=== PATIENT | female | born 1975 | race Caucasian/White ===

== ENCOUNTER → 2017-09-24 | Outpatient (CLI) | payer OTHER ==
--- NOTE | 2017-10-10 10:41 | PROC ---
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 PROCEDURE: Nasopharyngolaryngoscopy. FINDINGS: On nasopharyngolaryngoscopy, after giving 2% viscous lidocaine orally and then 2% viscous lidocaine to the left nostril, there were no suspicious visible lesions in the nasopharynx or posterior oropharynx. There were no visible lesions in the hypopharynx. The true vocal cords were normally mobile bilaterally without any visible lesions. Thank you very much for allowing me to participate in the care of this patient. <ELECTRONICALLY SIGNED> By: Gurjit Carrillo MD 10/10/17 1041 [id number] [id number] Carrillo MD /nt
--- NOTE | 2017-10-10 12:31 | CON ---
[address] [address] CONSULTATION Name: ANTELMO SHINE Room: [facility].#: [id number] Admission: 09/24/17 Attend Phys: Gurjit Carrillo MD Discharge: Date of : 73 Report #: [id number] THIS REPORT FOR: //name// CC: Gurjit Estes MD RADIATION ONCOLOGY CONSULT NOTE DATE OF CONSULTATION: 09/24/2017. [facility] REFERRING PHYSICIANS: Include Dr. Bentley Juarez and Dr. Leidy Estes. PRIMARY SITE AND HISTOPATHOLOGY: The patient has findings consistent with a poorly differentiated squamous cell carcinoma that was involving the left superficial parotid tissue as well as the left level 2 and 3 cervical lymph nodes involving about 3/6 lymph nodes with focal extracapsular extension. HISTORY OF PRESENT ILLNESS: The patient is a 42-year-old woman who developed a left neck mass around July 2017. She ultimately was seen by the ear, nose and throat physician, Dr. Corey Kilpatrick, and he ordered a neck CT with contrast on 08/27/2017 which revealed that the left parotid gland was abnormal with the deep lobe replaced by a necrotic mass that measured about 3.6 cm. x 2.2 cm. x 3.3 cm and more laterally within the superficial lobe of the parotid, there was a 1.8 cm. x 1.3 cm. x 1.7 cm partially cystic mass identified. Inferior to the parotid and anterior to the left sternocleidomastoid, there were several mildly enlarged necrotic lymph nodes seen, the largest one measured about 1.7 cm.x 1.7 cm. x 1.2 cm. The patient went on to undergo a left superficial parotidectomy as well as resection of lymph nodes at the level 2 and level 3 portion of the left neck and left tonsillectomy on 09/15/2017. The left tonsillectomy specimen had no malignant specimen seen. The left superficial parotid tissue had carcinoma which was focally extending to the inked margin and then there was 3/6 level 2 and level 3 lymph nodes involved with poorly differentiated squamous cell carcinoma with focal extracapsular extension. The patient was referred for consideration for adjuvant treatment. PAST MEDICAL HISTORY: She has a history of depression, diverticulosis, and ulcers. MEDICATIONS: Effexor, omeprazole, pantoprazole, Zegerid, Zyrtec, and Xanax. PAST SURGICAL HISTORY: She had her colon resected at [facility]. She had a laparoscopy for endometriosis at [facility]. She had dilatation and curettage at [facility] [place] [address] CONSULTATION Name: ANTELMO SHINE Room: [facility]#: [id number] Admission: 09/24/17 Attend Phys: Gurjit Carrillo MD Discharge: Date of : 73 Report #: [id number] ALLERGIES: REGLAN. OBSTETRICS AND GYNECOLOGY: Menarche was at age 12. Last menstrual period was on 09/23/2017 and she is 3, para 2, SAB 1 and her had a vasectomy. FAMILY HISTORY: Paternal grandmother has hypertension. SOCIAL HISTORY: She is a human resource agent. She has 2 sons. Ethanol: she drinks about 1 alcohol containing beverage a day. Cigarettes: she does not smoke cigarettes. REVIEW OF SYSTEMS: GENERAL: She has some sweating and weight loss. She thinks she has lost about 15 pounds since about July 2017. SKIN: She has some birthmarks with moles on her back. LYMPH NODES: She had left neck lymphadenopathy which was resected. ENDOCRINE: She has mild increased thirst after the superficial parotidectomy. HEMATOLOGY/IMMUNOLOGY: She had some issues with anemia in the past. MUSCULOSKELETAL: She has osteoarthritis. HEAD AND NECK: She has post-incisional pain which causes some difficulty with swallowing and voice changes. RESPIRATORY: She denied having any shortness of breath. CARDIOVASCULAR: She denied any palpitations. GASTROINTESTINAL: She denied having nausea or vomiting. NEUROLOGIC: She denied having any focal weakness. PHYSICAL EXAMINATION: VITAL SIGNS: Height 5 feet 10 inches, weight 209.8 pounds, blood pressure 140/88, pulse 91. LYMPH NODES: She had no suspicious palpable masses in the left neck area or right neck area. She has a well-healed surgical incision in the left neck area. GENERAL PSYCHIATRIC: She was alert, oriented, and in no acute distress. EYES: Pupils were equal, round, reactive to light and accommodation. HEAD, EARS, NOSE AND THROAT: Mouth had postsurgical changes in the left tonsillar area. There were no suspicious palpable masses in the mouth. There were no suspicious visible lesions in the mouth and nasopharyngolaryngoscopy after application of a small amount of 2% viscous lidocaine orally and 2% viscous lidocaine to the left nostril, there were no suspicious visible lesions in the nasopharynx or posterior oropharynx. The true vocal cords were normally mobile bilaterally. HEART: Had a regular rate and rhythm without murmur. LUNGS: were clear to auscultation. ABDOMEN: [place] [address] CONSULTATION Name: ANTELMO SHINE Room: [facility]#: [id number] Admission: 09/24/17 Attend Phys: Gurjit Carrillo MD Discharge: Date of : 73 Report #: [id number] tender. Spleen was not palpable. Liver was at the costal margin. EXTREMITIES: Had no clubbing, cyanosis or edema. NEUROLOGIC: Cranial nerves II to XII were intact. Sensation was intact. The patient had 5/5 strength in her extremities. 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 A PET CT scan will be ordered to help determine whether this is consistent with a cutaneous metastases to the parotid gland versus another site as the primary for this cancer. If this is a lymph node metastasis from a cutaneous squamous cell carcinoma, the efficacy for treatment of radiation therapy can be found in the article that was entitled "cutaneous squamous cell carcinoma metastatic to parotid area lymph nodes" that was published in 2008 in the journal Laryngoscope. One of the authors was Dr. Rabago from the [facility] Radiation Oncology Department. In that study, they had about 121 parotid areas in 117 patients that received radiation for nonmelanoma skin cancer that metastasized to the parotid area lymph nodes. The 5-year local regional control rate was 74%. The 5-year overall survival rate was 54%. The patients treated with preoperative radiation therapy seemed to have had a worse prognosis than those that were treated postoperatively. She will be a good candidate for intensity modulated radiation therapy. Baseline lab work will be ordered as well as a PET scan. She will also be sent for a dental evaluation and she will be also sent to the medical oncologist for evaluation for possible concurrent chemotherapy. The risks, benefits, logistics of radiation therapy were explained to the patient in detail. The patient gave her witnessed, informed consent to proceed with radiation therapy. Thank you very much for this consult. <ELECTRONICALLY SIGNED> By: Gurjit Carrillo MD 10/10/17 1231 1750 [id number] Carrillo MD /nt
== END ==
LOC: M.RTH 01:39
DX: C96.9 Malignant neoplasm of lymphoid, hematopoietic and related tissue, unspecified (principal)

== ENCOUNTER → 2017-12-22 | Outpatient (CLI) | payer OTHER ==
--- NOTE | 2018-01-02 16:57 | ONC ---
[facility] [address] [place] [address] RADIATION ONCOLOGY NOTE Name: ANTELMO SHINE Room: [facility].#: [id number] Admission: 12/22/17 Attend Phys: Gurjit Carrillo MD Discharge: Date of : 73 Report #: [id number] THIS REPORT FOR: //name// CC: Gurjit Cano DATE OF SERVICE: 12/22/2017 REFERRING PHYSICIANS: Kat Washburn M.D. as well as Dr. Cano and also Bentley Juarez M.D. 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 She received postoperative radiation therapy. She also received chemotherapy with cisplatin under the care of her medical oncologist, Dr. Washburn. Her radiation therapy was completed on 12/02/2017. INTERVAL NOTE: The patient still has issues with trying to keep her weight stable. She is starting to get some of her taste back. She is able to taste sweet peaches, but her taste is still altered, which affects her ability to keep her weight stable with her p.o. intake. She has a gastric tube in place, and she takes about 2 Isosource per day through her gastric tube. The thick saliva over the weekend caused her to become nauseous and have some vomiting this morning, which then subsided. She is trying to take Jell-O, pudding, milk, and baby food by mouth. MEDICATIONS: Alprazolam, ranitidine, Effexor, Phenergan, [place], (she rarelt takes any [place] at this time), and a 25mcg/hr fentanyl patch. REVIEW OF SYSTEMS: GASTROINTESTINAL: She still has intermittent nausea because of thick saliva. She takes alprazolam as needed for that issue. RESPIRATORY: Breathing, she was not short of breath. PHYSICAL EXAMINATION: VITAL SIGNS: The patient weighed 170.2 pounds on 12/22/2017, she was 178 pounds on 12/10/2017. On 12/22/2017, blood pressure was 136/106, pulse 116, respirations 22, oxygen saturation 94%. LYMPH NODES: She had no palpable cervical or supraclavicular lymphadenopathy. SKIN: Erythema has resolved. HEAD, EYES, EARS, NOSE AND THROAT: She has mild mucositis on the left side of the palate. HEART: Had a regular rate and [place] [address] RADIATION ONCOLOGY NOTE Name: ANTELMO SHINE Room: [facility]#: [id number] Admission: 12/22/17 Attend Phys: Gurjit Carrillo MD Discharge: Date of : 73 Report #: [id number] LUNGS: were clear to auscultation. ABDOMEN: Gastric tube was in place. LABORATORY DATA: From 12/13/2017, hemoglobin 10.9, platelets were 367,000, white blood cells were 13.0. Then electrolytes from 12/16/2017, sodium 137, potassium 3.5, BUN 18, creatinine 1.23. ASSESSMENT AND PLAN: 1. History of parotid gland cancer- There is no clear evidence of parotid gland cancer. She will be sent for intravenous fluids today and lab work and she will be asked to schedule a follow up appointment with me in about a week. 2. Nutritional status- The patient appears to be slowly improving. Some of her taste is coming back. She still has issues with stabilizing her weight. She is probably slightly dehydrated today. So, she was sent for intravenous fluids and she was given advice about how she can advance her nutrition. Lab work was ordered today and she was asked to schedule a follow up appointment with me in about 1 week. 3. Pain control- she still has painful swallowing. She is using the fentanyl patch at this time and takes hydrocodone as needed for breakthrough pain. Thank you for allowing me to participate in the care of this patient. <ELECTRONICALLY SIGNED> By: Gurjit Carrillo MD 01/02/18 1657 1256 [id number] Carrillo MD /nt
== END ==
LOC: M.RTH 02:42
DX: R13.10 Dysphagia, unspecified (principal); E63.9 Nutritional deficiency, unspecified; Z85.858 Personal history of malignant neoplasm of other endocrine glands

== ENCOUNTER → 2017-12-29 | Outpatient (CLI) | payer OTHER ==
--- NOTE | 2018-01-09 15:59 | ONC ---
[address] [address] RADIATION ONCOLOGY NOTE Name: ANTELMO SHINE Room: [facility].#: [id number] Admission: 12/29/17 Attend Phys: Gurjit Carrillo MD Discharge: Date of : 73 Report #: [id number] THIS REPORT FOR: //name// CC: Gurjit Washburn MD DATE OF SERVICE: 12/29/2017 [facility] REFERRING PHYSICIANS: Bentley Juarez MD; Kat Washburn MD and Dr. Cano. 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 3/6 lymph nodes were involved and she received postoperative radiation therapy. She also received chemotherapy with cisplatin under the care of her medical oncologist, Dr. Washburn. Her radiation therapy was completed on 12/02/2017. INTERVAL NOTE: Her feedings have improved significantly. She can taste some fruits, so she is now trying to maximize her feedings with what she can tolerate. She also takes mashed potatoes and other soft foods. She is also taking Isosource through her gastric tube. Her taste is starting to come back. Some days she takes no hydrocodone, other days she takes 4 hydrocodone per day. She is still on the 25 mcg per hour fentanyl patch. MEDICATIONS: Include alprazolam, ranitidine, Effexor, Phenergan, [place] and she is on 25 mcg per hour fentanyl patch. REVIEW OF SYSTEMS: GASTROINTESTINAL: She is eating better. Her appetite is good. She is a bit constipated and she was taking Colace, she is going to try MiraLax or Dulcolax suppository. RESPIRATORY: Breathing- she was not short of breath. PHYSICAL EXAMINATION: VITAL SIGNS: The patient weighed 173.4 pounds on 12/29/2017, she was 170.2 pounds on 12/22/2017. On 12/29/2017, blood pressure was 128/86, pulse 99. LYMPH NODES: She had no palpable cervical or supraclavicular lymphadenopathy. HEAD, EYES, EARS, NOSE, THROAT: Mouth had no suspicious visible lesions. HEART: Had a regular rate and rhythm without murmur. LUNGS: were clear to auscultation. ABDOMEN: Gastric tube was in place. LABORATORY DATA: From 12/22/2017, hemoglobin 9.7, platelets 184,000 [place] [address] RADIATION ONCOLOGY NOTE Name: ANTELMO SHINE Room: [facility]#: [id number] Admission: 12/29/17 Attend Phys: Gurjit Carrillo MD Discharge: Date of : 73 Report #: [id number] blood cell count 7.4. Sodium 137, potassium 4.2, BUN 17, creatinine 1.26. ASSESSMENT AND PLAN: 1. History of parotid gland cancer- There is no evidence of parotid gland cancer at this time. She was given a requisition for lab work in about 2 weeks; she was asked to schedule a followup appointment to see me afterwards. Her medical oncologist, Dr. Washburn, has her scheduled for scans on 01/18/2018. She is following up with Dr. Washburn on 01/19/2018. 2. Nutritional status- Her weight is now starting to increase and her oral intake has improved. Lab work was ordered in about 2 weeks, she was asked to schedule a followup appointment to see me afterwards. 3. Pain control- The patient's fentanyl will be tapered down to 12 mcg per hour. She was also given an excuse so she could reschedule her vacation trip on a cruise that was originally scheduled for January and she is rescheduling it for 02/2018. Thank you for allowing me to participate in the care of this patient. <ELECTRONICALLY SIGNED> By: Gurjit Carrillo MD 01/09/18 1559 1223 [id number] Carrillo MD /nt
== END ==
LOC: M.RTH 02:08
DX: Z09 Encounter for follow-up examination after completed treatment for conditions other than malignant neoplasm (principal); Z85.858 Personal history of malignant neoplasm of other endocrine glands

== ENCOUNTER → 2018-01-12 | Outpatient (CLI) | payer OTHER ==
--- NOTE | 2018-01-24 00:34 | ONC ---
[address] [address] RADIATION ONCOLOGY NOTE Name: ANTELMO SHINE Room: [facility]#: [id number] Admission: 01/12/18 Attend Phys: Gurjit Carrillo MD Discharge: Date of : 73 Report #: [id number] THIS REPORT FOR: //name// CC: Gurjit Washburn MD DATE OF SERVICE: 01/12/2018 FOLLOWUP NOTE REFERRING PHYSICIANS: 1. Bentley Juarez MD 2. Mony Cano MD 3. Kat Washburn MD [facility] phone is [phone]. 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 Three out of 6 lymph nodes were involved. She received postoperative radiation therapy. She also received chemotherapy with cisplatin under the care of her medical oncologist, Dr. Washburn. Radiation therapy was completed on 12/02/2017. INTERVAL NOTE: She is now taking more nutrition by mouth. She is taking foods such as milk, fruits and vegetables. She still has some mild lymphedema on the left cheek. She also has an area of soreness on the left tongue, which is near fillings. She is still on a 25 mcg per hour Duragesic patch. She also takes about 2-3 of 5 mg hydrocodone/325 mg acetaminophen tablets. She is taking about 2 Isosource daily through her gastric tube. She still notes she has a little bit of heat intolerance. MEDICATIONS: Alprazolam, Effexor, Phenergan, [place], fentanyl patch 25 mcg per hour, stool softener, Zegerid, and Protonix. REVIEW OF SYSTEMS: GASTROINTESTINAL: She continues to eat better. She appears to be taking more by mouth. RESPIRATORY: Breathing. She was not short of breath. PHYSICAL EXAMINATION: VITAL SIGNS: The patient weighed 170.4 pounds on 01/12/2018, she was 173.4 pounds on 12/29/2017, she was 170.2 pounds on 12/22/2017, and then on 01/12/2018, blood pressure 131/89, pulse 104, respirations 18, [place] [address] RADIATION ONCOLOGY NOTE Name: ANTELMO SHINE Room: [facility]#: [id number] Admission: 01/12/18 Attend Phys: Gurjit Carrillo MD Discharge: Date of : 73 Report #: [id number] 100%, temperature 97 degrees Fahrenheit. LYMPH NODES: She had no palpable cervical or supraclavicular lymphadenopathy. HEAD, EYES, EARS, NOSE AND THROAT EXAMINATION: Mouth had no suspicious visible lesions or suspicious palpable lesions. She does still have an area of mucositis on the left tongue where she has pain occasionally and that is near the fillings and is due to post-treatment changes. She has a little bit of left neck lymphedema. Tympanic membranes were intact bilaterally with no erythema,there may be just a slight amount of erythema in the external auditory canal. HEART: Had a regular rate and rhythm without murmur. LUNGS: were clear to auscultation. ABDOMEN: Gastric tube was in place. LABORATORY DATA: From 01/03/2018, hemoglobin 9.8, platelets 244,000; white blood cell 5.4. Sodium 137, potassium 3.7, BUN 12, creatinine 1.2, and TSH was 3.8. ASSESSMENT AND PLAN: 1. History of parotid gland cancer.- There is no evidence of parotid gland cancer at this time. She has a CT scan scheduled by her medical oncologist, Dr. Washburn on 01/18/2018. She has an appointment with Dr. Washburn on 01/19/2018. I ordered lab work in about 2-3 weeks and asked the patient to follow up with me afterwards. 2. Pain control- The patient's fentanyl will not be tapered to 12 mcg per hour yet because of the pain in the tongue area due to post-treatment changes, so she will be kept on a 25 mcg per hour fentanyl patch for another month. She was given a refill for 5 mg hydrocodone/325 mg acetaminophen and then she was also given a refill for alprazolam. 3. Nutritional status- Her weight has stabilized. She was encouraged to try to transition to oral feedings, so the gastric tube can be removed in the future. 4. Post-treatment changes in the external auditory canal- she was given a prescription for Cortisporear drops for that area and also referred to her ear, nose and throat physician, Dr. Juarez, to evaluate that area. Thank you for allowing me to participate in the care of this patient. <ELECTRONICALLY SIGNED> By: Gurjit Carrillo MD 01/24/18 0034 1246 [id number] Carrillo MD /nt
== END ==
LOC: M.RTH 01:32
DX: Z85.858 Personal history of malignant neoplasm of other endocrine glands (principal)

== ENCOUNTER → 2018-02-02 | Outpatient (CLI) | payer OTHER ==
--- NOTE | 2018-02-17 00:36 | ONC ---
[address] [address] RADIATION ONCOLOGY NOTE Name: ANTELMO SHINE Room: [facility]#: [id number] Admission: 02/02/18 Attend Phys: Gurjit Carrillo MD Discharge: Date of : 73 Report #: [id number] THIS REPORT FOR: //name// CC: Gurjit Washburn MD DATE OF SERVICE: 02/02/2018 REFERRING PHYSICIANS: Bentley Juarez MD.; Mony Cano MD.; Kat Washburn MD. [facility] phone is [phone]. 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 3/6 lymph nodes were involved with cancer and she received postoperative radiation therapy and she also received chemotherapy with cisplatin under the care of her medical oncologist, Dr. Washburn. Radiation therapy was completed on 12/02/2017. INTERVAL NOTE: She said that over the last week, she has taken all of her food by mouth. She has not been using her gastric tube. She mostly likes fruits, vegetables, mozzarella and she eats meats. She tends to make sure that she takes a lot of ketchup with her meat and she has decreased her fentanyl patch from a 25 mcg per hour patch to a 12 mcg per hour patch and she is continuing to taper off the fentanyl and the hydrocodone. She is still taking about 0.5 mg alprazolam, usually once during the day and then 2 at night. But overall, she feels like she is recuperating well. She would like to have her gastric tube removed since she has been gaining weight with taking her nutrition orally. MEDICATIONS: Include alprazolam 0.5 mg 3 times a day and Effexor right now she is on 75 mg twice a day. She will be given a prescription for 150 mg extended release and she is now able to take that by mouth. She takes Phenergan 25 mg every 6 hours as needed, 5 mg [place] every 4 hours as needed. She is on a 12 mcg per hour fentanyl patch. She was taking Zegerid and Protonix. She is going to just go to Zegerid as needed. REVIEW OF SYSTEMS: GASTROINTESTINAL: She continues to eat better. She is taking all of her foods by mouth. RESPIRATORY: Breathing, she was not short of breath. PHYSICAL EXAMINATION: VITAL SIGNS: The patient weighed 164[place] [place] [address] RADIATION ONCOLOGY NOTE Name: ANTELMO SHINE Room: [facility]#: [id number] Admission: 02/02/18 Attend Phys: Gurjit Carrillo MD Discharge: Date of : 73 Report #: [id number] 02/02/2018. She was 170.4 pounds on 01/12/2018. She said that she was down to 162 pounds this week and that she is actually gaining weight now and on 02/02/2018 her blood pressure was 111/75, pulse 100, and respirations 18. LYMPH NODES: She had no palpable cervical or supraclavicular lymphadenopathy. HEAD, EYES, EARS, NOSE AND THROAT: Mouth had no suspicious visible lesions or suspicious palpable lesions and tympanic membranes were intact bilaterally. HEART: Had a regular rate and rhythm without murmur. LUNGS: were clear to auscultation. ABDOMEN: Gastric tube was in place. LABORATORY DATA: From 01/28/2018, hemoglobin 10.9, platelets were 203,000, white blood cells were 3.1. Sodium 135, potassium 3.8, BUN 13, creatinine 1.19. TSH is 2.13. RADIOLOGIC DATA: She had a neck and chest CT on 01/18/2018 and that did reveal a heterogeneous mass in the region of the left parotid gland, which could be possibly residual recurrent tumor. There was no cervical tayler metastatic disease. ASSESSMENT AND PLAN: 1. History of cancer involving the parotid gland- The patient will be set up for lab work and a PET/CT to see if the area seen on the CT scan is either scar tissue versus tumor in that area and the patient will be asked to follow up with me afterwards. 2. Pain control.- The patient is slowly tapering off the fentanyl patch. She has gone from a 25 mcg per hour patch to a 12 mcg per hour patch. She was given a refill for alprazolam and then we will probably work on tapering that off later. 3. Nutritional status- She felt like her weight has stabilized without using the gastric tubes and an order will be placed to have that removed. 4. Depression- The patient will be switched over from 75 mg Effexor twice a day to 150 mg. Effexor extended release. Thank you for allowing me to participate in the care of this patient. <ELECTRONICALLY SIGNED> By: Gurjit Carrillo MD 02/17/18 0036 1137 [id number] Carrillo MD /nt
== END ==
LOC: M.RTH 03:55
DX: C07 Malignant neoplasm of parotid gland (principal); F32.9 Major depressive disorder, single episode, unspecified

== ENCOUNTER → 2018-03-16 | Outpatient (CLI) | payer OTHER ==
--- NOTE | 2018-03-28 00:06 | ONC ---
[place] [address] RADIATION ONCOLOGY NOTE Name: ANTELMO SHINE Room: [facility].#: [id number] Admission: 03/16/18 Attend Phys: Gurjit Carrillo MD Discharge: Date of : 73 Report #: [id number] THIS REPORT FOR: //name// CC: Gurjit Juarez MD DATE OF PROCEDURE: 03/16/2018 REFERRING PHYSICIANS: Bentley Juarez MD; Mony Cano MD; Kat Washburn MD and Dr. Estes, primary care physician. [facility] phone is [phone]. 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 Washburn. Radiation therapy was completed on 12/02/2017. PROCEDURE: Nasopharyngolaryngoscopy. FINDINGS: On nasopharyngolaryngoscopy, after administration of 2% viscous lidocaine orally and 2% viscous lidocaine to left nostril, there were no visible lesions in the nasopharynx. Posterior pharynx and the true vocal cords had no visible lesions. There was no evidence of head and neck cancer. Thank you for allowing me to participate in the care of this patient. <ELECTRONICALLY SIGNED> By: Gurjit Carrillo MD 03/28/18 [id number] Carrillo MD /nt
--- NOTE | 2018-03-28 00:10 | ONC ---
[address] [address] RADIATION ONCOLOGY NOTE Name: ANTELMO SHINE Room: [facility]#: [id number] Admission: 03/16/18 Attend Phys: Gurjit Carrillo MD Discharge: Date of : 73 Report #: [id number] THIS REPORT FOR: //name// CC: Gurjit Estes DATE OF SERVICE: 03/16/2018 REFERRING PHYSICIANS: Bentley Juarez MD; Dr. Cano; Kat Washburn MD; Dr. Estes, primary care physician. [facility] phone is [phone]. 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 Three out of 6 lymph nodes were involved with cancer. She received postoperative radiation therapy and she also received chemotherapy , cisplatin, under the care of her medical oncologist, Dr. Washburn. Radiation therapy was completed on 12/02/2017. INTERVAL NOTE: The patient overall is doing reasonably well with eating foods by mouth. She no longer has a gastric tube in place. She went on a cruise. She still has trouble eating dry meats. She still takes hydrocodone periodically, sometimes up to 4 hydrocodone per day. She also sometimes takes alprazolam. She complains of neuropathy in her extremities. She also said she had a presyncopal episode about 2 weeks ago. MEDICATIONS: Include alprazolam, Effexor 75 mg twice a day, Phenergan. She takes hydrocodone as needed and Protonix. REVIEW OF SYSTEMS: GASTROINTESTINAL: Her weight was stable. She eats reasonably well. RESPIRATORY: She was not short of breath. PHYSICAL EXAMINATION: VITAL SIGNS: Weight is 164 pounds on 03/16/2018. She was 164.4 pounds on 02/02/2018. On 03/16/2018, blood pressure 137/92, pulse 88, respirations 16, oxygen saturation 100%. LYMPH NODES: She had no palpable cervical or supraclavicular lymphadenopathy. HEAD, EYES, EARS, NOSE AND THROAT: Mouth had no suspicious visible lesions or suspicious palpable lesions. Tympanic membranes were intact bilaterally. There were no suspicious lesions in the left parotid area or right parotid area. Nasopharyngolaryngoscopy after administration of 2% viscous lidocaine orally and 2% viscous lidocaine to left nostril, there [place] [address] RADIATION ONCOLOGY NOTE Name: ANTELMO SHINE Room: [facility]#: [id number] Admission: 03/16/18 Attend Phys: Gurjit Carrillo MD Discharge: Date of : 73 Report #: [id number] nasopharynx, posterior pharynx. The true vocal cords were normally mobile bilaterally. LABORATORY DATA: From 03/07/2018, hemoglobin 10.4; platelets 215,000; white blood cells 5.6. Sodium 138, potassium 3.8, BUN 13, creatinine 1.31. TSH was 2.09. RADIOLOGIC DATA: From 03/10/2018, she had a PET/CT and that revealed decreased size of the soft tissue mass in the deep left parotid gland, residual uptake is indeterminate between post-therapeutic inflammation and residual tumor. Short-term followup was recommended. There was resolution of a hypermetabolic left level 3 lymph nodes. ASSESSMENT AND PLAN: 1. History of parotid gland cancer- There is no clear evidence of parotid gland cancer at this time. Lab work and a PET/CT will be ordered in about 3 months. The patient will be asked to schedule a followup appointment to see me afterwards. 2. Neuropathy- The patient will be sent to the rehab physician, Dr. Haq, to manage that issue. 3. Presyncopal episode- The patient will be referred to her primary care physician to follow up on this issue. 4. Nutrition- The patient is eating well. She was given a refill for promethazine and alprazolam as needed. She was told to try to taper off the alprazolam. Thank you for allowing me to participate in the care of this patient. <ELECTRONICALLY SIGNED> By: Gurjit Carrillo MD 03/28/18 0010 [id number] Carrillo MD /nt
== END | disposition home or self-care (01) ==
LOC: M.RTH 04:27
DX: Z85.818 Personal history of malignant neoplasm of other sites of lip, oral cavity, and pharynx (principal); G62.9 Polyneuropathy, unspecified; Z79.891 Long term (current) use of opiate analgesic; Z98.890 Other specified postprocedural states

== ENCOUNTER → 2018-07-06 | Outpatient (CLI) | payer OTHER ==
--- NOTE | 2018-07-09 22:10 | ONC ---
[place] [address] RADIATION ONCOLOGY NOTE Name: ANTELMO SHINE Room: [facility].#: [id number] Admission: 07/06/18 Attend Phys: Gurjit Carrillo MD Discharge: Date of : 73 Report #: [id number] THIS REPORT FOR: //name// CC: Gurjit Washburn MD DATE OF SERVICE: 07/06/2018 REFERRING PHYSICIANS: Bentley Juarez MD; Dr. Cano; Leidy Estes MD and Kat Washburn MD. [facility] phone is [phone]. 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 Three out of six lymph nodes were involved with cancer. She received postoperative radiation therapy. She also received chemotherapy, which consisted of cisplatin under the care of her medical oncologist, Dr. Washburn. Radiation therapy was completed on 12/02/2017. INTERVAL NOTE: The patient seems to be doing reasonably well. She has mild trismus. She restricts her diet to softer foods. She likes to have soups with noodles and moist ground meat. She tries to avoid dry breads. She tries to avoid dry meats. She has no evidence of any facial paresis or paralysis. Her primary care physician is prescribing her Effexor and Xanax for her. Her dentist prescribes her 1.1% fluoride for her. She is gaining weight. There is still a question of whether there is an area around the parotid bed that is either scar tissue versus possible residual tumor. The patient indicated that they saw her medical oncologist,Dr. Washburn, last week and then saw her Ear, Nose, and throat physician, Dr. Juarez, a few days later. The management plan was to go ahead and schedule a neck CT in about 6 weeks to continue following this area and then make a decision (after the CT scan is completed) whether to continue observing that area versus having a resection of that area. MEDICATIONS: Include alprazolam as needed. She also takes 150 mg extended release Effexor per day. She also takes an iron supplements and Protonix and then PreviDent 1.1% gel. She no longer takes hydrocodone. She does take ibuprofen sometimes in the morning and evening. PHYSICAL EXAMINATION: VITAL SIGNS: The patient weighed 167 pounds on 07/06/2018, 164 pounds on 03/16/2018. On 07/06/2018, blood pressure was 122/87, pulse 79, respirations 16, oxygen saturation was 100%. [place] [address] RADIATION ONCOLOGY NOTE Name: ANTELMO SHINE Room: [facility]#: [id number] Admission: 07/06/18 Attend Phys: Gurjit Carrillo MD Discharge: Date of : 73 Report #: [id number] LYMPH NODES: She had no palpable cervical or supraclavicular lymphadenopathy. Tympanic membranes were intact bilaterally. There were no suspicious palpable masses in the mouth. There were no suspicious visible masses in the mouth. There were no suspicious palpable masses in the left parotid bed or the right parotid bed. HEART: Had a regular rate and rhythm without murmur. LUNGS: were clear to auscultation. LABORATORY DATA: From 06/27/2018, hemoglobin was 11.3, platelets were 286,000, white blood cell count was 4.7. Sodium was 135, potassium 3.5, BUN 16, creatinine was 1.12.TSH was 2.09 on 03/07/2018. RADIOLOGIC DATA: The patient had a neck CT scan on 06/27/2018, which showed a stable mass in the region of the deep lobe of the left parotid gland. It was consistent with residual recurrent tumor though it could also possible be scar tissue as well and it measured 3.5 cm x 2.1 cm on 06/27/2018. Previously on 01/18/2018 it measured 3.2 cm. x 2.2 cm, so it is a little bit larger in one dimension and a little bit smaller in another dimension. ASSESSMENT AND PLAN: 1. History of parotid gland cancer- She has either scar tissue versus a residual tumor in the parotid bed. In one dimension, it was smaller and in another dimension it was larger. So, the patient will be set up for a CT scan in about 6 weeks and that should possibly help determine whether further observation is warranted if it looks more like scar tissue or if resection is warranted if it looks like residual tumor. The patient was asked to schedule a follow up appointment with me after the CT scan. 2. Neuropathy- The patient follows up with her rehabilitation physician, Dr. Haq with regards to that issue. She is scheduled to see Dr. Haq on 07/08/2018. 3. Depression- The patient is scheduled to see her psychologist, Dr. Cano, on 08/08/2018 and she is taking Effexor and that seems to be helping improve symptoms of depression. Thank you very much for allowing me to participate in the care of this patient. <ELECTRONICALLY SIGNED> By: Gurjit Carrillo MD 07/09/18 2210 [id number] 1914DMD hina Blum
== END ==
LOC: M.RTH 07-01 10:30
DX: Z08 Encounter for follow-up examination after completed treatment for malignant neoplasm (principal); F32.9 Major depressive disorder, single episode, unspecified; G62.9 Polyneuropathy, unspecified; Z85.858 Personal history of malignant neoplasm of other endocrine glands

== ENCOUNTER → 2018-09-09 | Outpatient (CLI) | payer OTHER ==
--- NOTE | ~2018-09-09 | ONC ---
[address] [address] RADIATION ONCOLOGY NOTE Name: ANTELMO SHINE Room: [facility].#: [id number] Admission: 09/09/18 Attend Phys: Gurjit Carrillo MD Discharge: Date of : 73 Report #: [id number] THIS REPORT FOR: //name// CC: Gurjit Carrillo [facility] physician/PCP DATE OF SERVICE: 09/09/2018 REFERRING PHYSICIANS: Dr. Bentley Juarez, Dr. Cano, Dr. Kat Washburn. [facility] phone is [phone]. 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 She received postoperative radiation therapy. She also received chemotherapy, which consisted of cisplatin under the care of her medical oncologist, Dr. Washburn. Radiation therapy was completed on 12/02/2017. INTERVAL NOTE: The patient feels like she has a good appetite. She is eating well. It is usual to avoid dry breads and dry meats because of mild xerostomia. She sees her dentist regularly, who prescribes 1.1% fluoride for her and she uses fluoride trays. She saw Dr. Washburn on 09/07/2018. The patient has a small mass-like area on her CT scan, which showed it is stable and after discussions with Dr. Washburn and her ear, nose and throat physician, the decision was made to watch, to see if this is just post-treatment scar tissue. The patient denied having any significant pain at this point. MEDICATIONS: She takes gabapentin twice a day and alprazolam as needed. She is on 150 mg extended release Effexor. She is no longer taking her iron supplement. She has sometimes taken ibuprofen as needed in the past. PHYSICAL EXAMINATION: VITAL SIGNS: The patient weighed 178.8 pounds on 09/09/2018, she was 167 pounds on 07/06/2018. On 09/09/2018, blood pressure is 111/75, pulse 82, respirations 20, oxygen saturation 98%. LYMPH NODES: She had no palpable cervical or supraclavicular lymphadenopathy. HEAD, EYES, EARS, NOSE AND THROAT: Tympanic membranes were intact bilaterally. There were no suspicious palpable masses in the mouth. There were no suspicious palpable masses in the left parotid bed or the right parotid bed. HEART: Had a regular rate and rhythm without murmur. LUNGS: Clear to auscultation. LABORATORY DATA: From 09/07/2018: Hemoglobin 11.3, platelets 218, white blood cells 4.4, absolute neutrophil count 3.4. Sodium 137, potassium 4.0, BUN 20, creatinine 1.27. TSH was 4.220 which [place] [address] RADIATION ONCOLOGY NOTE Name: ANTELMO SHINE Room: [facility] Jc#: [id number] Admission: 09/09/18 Attend Phys: Gurjit Carrillo MD Discharge: Date of : 73 Report #: [id number] RADIOLOGIC DATA: The patient had a neck CT on 08/19/2018, which revealed stable postoperative changes in the left neck, essentially stable mass in the deep lobe of the left parotid gland, which was unchanged, measured about 3.3 x 2.1 cm. ASSESSMENT AND PLAN: 1. History of parotid gland cancer. There is no clear evidence of parotid gland cancer. There is a mass-like area seen in the deep lobe of the left parotid gland, which is stable, which could be scar tissue after her radiation treatment. Decision was made to observe it, so lab work and a neck CT ordered in about 3 months and the patient was asked to schedule a followup appointment to see me afterwards. 2. Neuropathy. The patient was referred to the oncology rehabilitation physician, Dr. Haq and the patient is taking gabapentin at this time. 3. Dental care. The patient receives 1.1% fluoride from her dentist and follows up with her dentist regularly. 4. Depression. The patient is taking extended release Effexor and following up with the psychologist, Dr. Cano. Thank you for allowing me to participate in the care of this patient. By: [id number] Carrillo MD /brandy
== END ==
LOC: M.RTH 10:30
DX: G62.9 Polyneuropathy, unspecified (principal); F32.9 Major depressive disorder, single episode, unspecified; Z85.858 Personal history of malignant neoplasm of other endocrine glands

== ENCOUNTER → 2018-11-25 | Outpatient (CLI) | payer OTHER ==
--- NOTE | ~2018-11-25 | ONC ---
[address] [address] RADIATION ONCOLOGY NOTE Name: ANTELMO SHINE Room: [facility]#: [id number] Admission: 11/25/18 Attend Phys: Gurjit Carrillo MD Discharge: Date of : 73 Report #: [id number] THIS REPORT FOR: //name// CC: Gurjit Carrillo [facility] physician/PCP DATE OF SERVICE: 11/25/2018 REFERRING PHYSICIANS: Kat Washburn MD; Bentley Juarez MD; Dr. Cano. [facility] phone is [phone]. 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 She received postoperative radiation therapy. She also received chemotherapy, which consisted of cisplatin under of the care of her medical oncologist, Dr. Washburn. Radiation therapy was completed on 12/02/2018. INTERVAL NOTE: The patient overall is eating a regular diet. There are some foods which if they are too spicy or too acidic, have cause her to have a burning sensation. So she avoids those. She is able to eat shrimp. She is able to eat pastas. MEDICATIONS: Include gabapentin twice a day, alprazolam as needed. She is also on 150 mg extended release Effexor. SOCIAL HISTORY: Cigarettes: The patient does not smoke cigarettes. REVIEW OF SYSTEMS: RESPIRATORY: Breathing: She was not short of breath. GASTROINTESTINAL: She has good appetite. PHYSICAL EXAMINATION: VITAL SIGNS: The patient weighed 184.8 pounds on 11/25/2018, 178.8 pounds on 09/09/2018 and on 11/25/2018, blood pressure is 132/93, pulse 87, respirations 16, oxygen saturation was 100% on room air. LYMPH NODES: She had no palpable cervical or supraclavicular lymphadenopathy. HEAD, EYES, EARS, NOSE AND THROAT: Mouth had no suspicious visible lesions or suspicious palpable lesions. The tympanic membranes were intact bilaterally. There are no palpable masses in the left parotid bed or the right parotid bed. HEART: Had a regular rate and rhythm without murmur. LUNGS: Clear to auscultation. LABORATORY DATA: From 11/14/2018: Hemoglobin 11.7, platelets were 193,000, white blood cells were 4.2, sodium 132, potassium 3.9, BUN 20, creatinine 1.21[place] [address] RADIATION ONCOLOGY NOTE Name: ANTELMO SHINE Room: [facility]#: [id number] Admission: 11/25/18 Attend Phys: Gurjit Carrillo MD Discharge: Date of : 73 Report #: [id number] TSH was 4.84. RADIOLOGIC DATA: Neck CT from 11/14/2018 showed stable lobulated mass lesion in the deep lobe of left parotid. No significant cervical lymphadenopathy. ASSESSMENT AND PLAN: 1. History of parotid gland cancer. There is no clear evidence of recurrent parotid gland cancer. She has a stable mass type area in the left parotid bed, which was thought to possibly be scar tissue since it has not changed in size. The patient wanted to proceed just with observation of that area. She is scheduled to see her medical oncologist, Dr. Washburn on 03/08/2019 and she is also scheduled to undergo lab work, as well as neck and chest CT with Dr. Washburn around that time. I went ahead and ordered complete blood count, basic metabolic panel, TSH level, as well as a neck CT in 06/2019 and asked the patient to follow up with me afterwards. 2. Neuropathy. The patient was referred back to her rehabilitation physician, Dr. Haq, to manage her neuropathy. She is taking gabapentin for that issue. 3. Dental care. The patient received 7.1% fluoride from her dentist and follows with her dentist regularly. 4. Depression. The patient is taking extended release Effexor and following up with her psychologist, Dr. Cano Thank you for allowing me to participate in the care of this patient. By: [id number] Carrillo MD /brandy
== END ==
LOC: M.RTH 11-18 10:15
DX: Z08 Encounter for follow-up examination after completed treatment for malignant neoplasm (principal); F32.9 Major depressive disorder, single episode, unspecified; Z85.858 Personal history of malignant neoplasm of other endocrine glands; Z92.3 Personal history of irradiation

== ENCOUNTER → 2019-06-16 | Outpatient (CLI) | payer OTHER ==
--- NOTE | 2019-06-18 02:26 | ONC ---
[address] [address] RADIATION ONCOLOGY NOTE Name: ANTELMO SHINE Room: [facility].#: [id number] Admission: 06/16/19 Attend Phys: Gurjit Carrillo MD Discharge: Date of : 73 Report #: [id number] THIS REPORT FOR: //name// CC: Gurjit Solano DATE OF SERVICE: 06/16/2019 RADIATION ONCOLOGY FOLLOWUP NOTE REFERRING PHYSICIANS: Include Dr. Kat Washburn, Dr. Bentley Juarez, Dr. Cano as well as Dr. Linn Solano. [facility] phone is [phone]. 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 She received postoperative radiation therapy. She also received chemotherapy which consisted of cisplatin under the care of her medical oncologist, Dr. Washburn. Radiation therapy was completed on 12/02/2018. INTERVAL NOTE: The patient is eating a regular diet. She is gaining weight. She mostly likes sweet foods, though she does also like to eat shrimp. She tries to avoid meats. She continues to follow up with Dr. Cano. She feels like she has short-term memory deficits and issues with her balance. MEDICATIONS: At this point, PreviDent 5000 , 1.1% gel. She has been on Effexor XR 150 mg capsules every day, Protonix, ibuprofen as needed, Neurontin and Flexeril. SOCIAL HISTORY: Cigarettes: The patient does not smoke cigarettes. REVIEW OF SYSTEMS: RESPIRATORY: Breathing, she was not short of breath. GASTROINTESTINAL: She has a good appetite. PHYSICAL EXAMINATION: VITAL SIGNS: The patient weighed 209 pounds on 06/16/2019 and 184.8 pounds on 11/25/2018. On 06/16/2019, blood pressure was 142/87, pulse 83, respirations 20 and oxygen saturation 98%. LYMPH NODES: The patient had no palpable cervical or suprac[place] [address] RADIATION ONCOLOGY NOTE Name: ANTELMO SHINE Room: [facility]#: [id number] Admission: 06/16/19 Attend Phys: Gurjit Carrillo MD Discharge: Date of : 73 Report #: [id number] HEAD, EYES, EARS, NOSE AND THROAT EXAMINATION: Mouth had no suspicious visible lesions or suspicious palpable lesions. Tympanic membranes were intact bilaterally. HEART: Had a regular rate and rhythm, without murmur. LUNGS: were clear to auscultation. LABORATORY DATA: From 06/12/2019, hemoglobin 11.7, platelets 231,000 and white blood cell count 3.8. Sodium 137, potassium 3.8, BUN 18 and creatinine 1.16. TSH was elevated at 5.83. RADIOLOGY DATA: Neck CT on 06/12/2019 showed no cervical lymphadenopathy and the prior left superficial parotidectomy looks stable, the deep parotid mass used to measure 2.4 x 1.8 cm on the previous scan; now, it is smaller at 2.3 cm x 1.6 cm. ASSESSMENT AND PLAN: 1. History of parotid gland cancer- There is no clear evidence of recurrent parotid gland cancer. The patient is scheduled to see her medical oncologist, Dr. Washburn in 09/2019. She has lab work and a neck CT will be ordered in about 6 months. The patient will be asked to follow up with me afterwards. 2. Issues with balance and memory-Part of that could be due to hypothyroidism and so she will be started on levothyroxine, but she will also be referred to the neurologist, Dr. Peterson, to be evaluated further. 3. Dental care- The patient had a refill for her PreviDent 5000 fluoride for dry mouth, 4. Depression- She follows up with Dr. Cano. 5. Hypothyroidism. The patient was started on 25 mcg of levothyroxine and TSH will be ordered in 6 months. She will be asked to follow up with me afterwards. Thank you for allowing me to participate in the care of this patient. <ELECTRONICALLY SIGNED> By: Gurjit Carrillo MD 06/18/19 0226 [id number] [id number] Carrillo MD /nt
== END ==
LOC: M.RTH 04:48
DX: Z08 Encounter for follow-up examination after completed treatment for malignant neoplasm (principal); F32.9 Major depressive disorder, single episode, unspecified; E03.9 Hypothyroidism, unspecified; Z85.818 Personal history of malignant neoplasm of other sites of lip, oral cavity, and pharynx

== ENCOUNTER → 2019-12-29 | Outpatient (CLI) | payer OTHER ==
--- NOTE | 2019-12-30 23:27 | ONC ---
[address] [address] RADIATION ONCOLOGY NOTE Name: ANTELMO SHINE Room: [facility].#: [id number] Admission: 12/29/19 Attend Phys: Gurjit Carrillo MD Discharge: Date of : 73 Report #: [id number] THIS REPORT FOR: //name// CC: Gurjit Solano DATE OF SERVICE: 12/29/2019 REFERRING PHYSICIANS: Dr. Kat Washburn; Dr. Bentley Juarez; Dr. Cano; Dr. Solano, [facility], phone number [phone]. 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 She received postoperative radiation therapy. She also received chemotherapy, which consisted of cisplatin under the care of her medical oncologist, Dr. Washburn. Radiation therapy was completed on 12/02/2018. INTERVAL NOTE: The patient is eating a regular diet. She is gaining weight. She tends to avoid dry meats. She says that now she follows up with a psychiatrist who has altered some of her medication and overall she feels pretty good. She stopped taking her ibuprofen at nighttime. She will try to switch to Tylenol. Her creatinine was going up a little bit while taking the ibuprofen. MEDICATIONS: PreviDent 5000 1.1% gel, which her dentist prescribes for her and she uses dental trays with that. She also takes gabapentin 600 mg twice a day. She takes Protonix, Colace as needed, Centrum, multivitamin, probiotic. She is going to be discontinue the Advil PM, Flexeril, clonazepam twice a day, and venlafaxine 225 mg once a day. SOCIAL HISTORY: Cigarettes: The patient does not smoke cigarettes. REVIEW OF SYSTEMS: RESPIRATORY:. She was not short of breath. GASTROINTESTINAL: She has good appetite. PHYSICAL EXAMINATION: VITAL SIGNS: The patient weighed 216.8 pounds on 12/29/2019. She was 209.1 pounds on 06/16/2020. On 12/29/2019, blood pressure was 135/95, pulse 85, oxygen saturation 96%, temperature 96.7 degrees Fahrenheit, and respirations 16. [place] [address] RADIATION ONCOLOGY NOTE Name: ANTELMO SHINE Room: [facility]#: [id number] Admission: 12/29/19 Attend Phys: Gurjit Carrillo MD Discharge: Date of : 73 Report #: [id number] LYMPH NODES: The patient had no palpable cervical or supraclavicular lymphadenopathy. HEAD, EYES, EARS, NOSE, AND THROAT: Mouth had no suspicious visible lesions or suspicious palpable lesions. Tympanic membranes were intact bilaterally. HEART: Had a regular rate and rhythm without murmur. LUNGS: were clear to auscultation. LABORATORY DATA: From 12/25/2019, hemoglobin 11.1; platelets 261,000; white blood cells 4.2. Sodium 138, potassium 3.8, BUN 12, and creatinine 1.31. TSH was 3.75 with her taking 25 mcg of levothyroxine per day. RADIOLOGIC DATA: The patient had a neck CT on 12/25/2019, which revealed evidence of the previous left parotidectomy and left neck dissection. She has stable residual mass involving the deep lobe of the parotid, which has not changed. It measured about 3.3 cm. x 1.6 cm. There is no adjacent osseous destruction. ASSESSMENT AND PLAN: 1. History of parotid gland cancer- There is no clear evidence of any active cancer at this time. The patient is scheduled for lab work and a neck and chest CT with the medical oncologist, Dr. Washburn on 03/22/2020. She has an appointment with Dr. Washburn on 03/26/2020. The patient had lab work ordered in about 6 months. She was asked to follow up with me afterwards. 2. Dental care- The patient indicates that her dentist gives her PreviDent 5000 fluoride gel and she uses that with dental trays. 3. Depression- The patient continues to follow up with Dr. Cano with regards to that issue and a psychiatrist. 4. Hypothyroidism- The patient's TSH is within normal limits with her taking 25 mcg of levothyroxine per day, so she was given a refill for 25 mcg of levothyroxine per day and a TSH was ordered in 6 months, and she was asked to follow up with me afterwards. Thank you for allowing me to participate in the care of this patient. <ELECTRONICALLY SIGNED> By: Gurjit Carrillo MD 12/30/19 [id number] Carrillo MD /nt
== END ==
LOC: M.RTH 01:34
DX: E03.9 Hypothyroidism, unspecified (principal); F32.9 Major depressive disorder, single episode, unspecified; Z85.818 Personal history of malignant neoplasm of other sites of lip, oral cavity, and pharynx

== ENCOUNTER → 2020-06-28 | Outpatient (CLI) | payer OTHER ==
--- NOTE | ~2020-06-28 | ONC ---
[address] [address] RADIATION ONCOLOGY NOTE Name: ANTELMO SHINE Room: [facility].#: [id number] Admission: 06/28/20 Attend Phys: Gurjit Carrillo MD Discharge: Date of : 73 Report #: [id number] THIS REPORT FOR: //name// CC: Gurjit Carrillo [facility] physician/PCP DATE OF SERVICE: 06/28/2020 RADIATION ONCOLOGY FOLLOWUP NOTE REFERRING PHYSICIANS: Kat Washburn MD; Bentley Juarez MD; Dr. Cano, and Dr. Solano. The patient was seen on 06/28/2020. [facility] phone is [phone]. 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 She received postoperative radiation therapy. She also received chemotherapy, which consisted of cisplatin under the care of her medical oncologist, Dr. Washburn. Radiation therapy was completed on 12/02/2018. INTERVAL NOTE: The patient is eating a regular diet. She mostly can taste sweet foods, but she is able to also eat foods such as turkey, ham and shrimp, though she says beef is a little more tougher for her to tolerate. She continues to have issues with neuropathy. She had Botox injections in the left facial area, which have helped her a little bit with pain control, but she also takes gabapentin. MEDICATIONS: Include gabapentin, Protonix as needed, Colace as needed, Lopez' stool softeners as needed, probiotic, Advil as needed, Flexeril, venlafaxine, clonazepam, Trintellix, 25 mcg of levothyroxine and iron supplements and omega supplement. SOCIAL HISTORY: Cigarettes: The patient does not smoke cigarettes. REVIEW OF SYSTEMS: RESPIRATORY: She was not short of breath. GASTROINTESTINAL: She has a good appetite. PHYSICAL EXAMINATION: VITAL SIGNS: The patient weighed 223.8 pounds on 06/28/2020. She was 216.8 pounds on 12/29/2019 and on 06/28/2020 blood pressure 145/89, pulse 73, respirations 20, oxygen saturation 96%, temperature 97.7 degrees Fahrenheit. LYMPH NODES: The patient had no palpable [place] [address] RADIATION ONCOLOGY NOTE Name: ANTELMO SHINE Room: [facility]#: [id number] Admission: 06/28/20 Attend Phys: Gurjit Carrillo MD Discharge: Date of : 73 Report #: [id number] lymphadenopathy. HEAD, EYES, EARS, NOSE AND THROAT: Mouth had no suspicious visible lesions or suspicious palpable lesions. Tympanic membranes were intact bilaterally. HEART: Had a regular rate and rhythm without murmur. LUNGS: Clear to auscultation. LABORATORY DATA: From 06/25/2020, hemoglobin was 14.2, platelets were 256,000, white blood cells 4.6. Sodium 139, potassium 4.0, BUN 16, creatinine 1.26. Her creatinine back on 12/25/2019 was 1.31. Her TSH was 4.16, which was within normal limits with her taking 25 mcg of levothyroxine. RADIOLOGIC DATA: From 03/22/2020, chest CT showed a stable small right middle lobe pulmonary nodule without new or enlarging nodules. They recommended a 6-[address] and a neck CT on 03/22/2020 revealed previous left parotidectomy, left neck dissection and no significant change in the central mass in the deep lobe of the parotid. There is no lymphadenopathy and that area that was seen on the parotid measured 3.2 x 1.5 cm. It was 3.3 x 1.6 cm, previously. ASSESSMENT AND PLAN: 1. History of parotid gland cancer. There is no clear evidence of active cancer at this time. The area that is seen on the CT could be scar tissue. The patient is scheduled for lab work and a neck and chest CT by her medical oncologist, Dr. Washburn on 10/01/2020 and the patient has an appointment with Dr. Washburn on 10/03/2020. I went ahead and ordered lab work and a complete blood count and basic metabolic panel in 6 months and asked the patient to follow up with me afterwards. 2. Hypothyroidism. The patient's TSH is within normal limits with her taking 25 mcg of levothyroxine per day, so she was given a refill for 25 mcg of levothyroxine per day and a TSH was ordered in 6 months, so she was asked to schedule a followup appointment to see me afterwards. 3. Dental care. The patient says that her dentist gives her PreviDent 5000 fluoride gel and she uses that with dental trays. 4. Neuropathy -- The patient has chronic joint pain and neuropathy, so I went ahead and put in a referral for her see a firesetter to see if there could be any autoimmune factor to her symptoms. Thank you very much for allowing me to participate in the care of this patient. By: 1344 [id number] Carrillo MD /nt
== END ==
LOC: M.RTH 00:08
PROVIDERS: ATTEND Radiology Radiation Oncology
DX: E03.9 Hypothyroidism, unspecified (principal); G62.9 Polyneuropathy, unspecified; Z85.89 Personal history of malignant neoplasm of other organs and systems

== ENCOUNTER → 2020-12-27 | Outpatient (CLI) | payer OTHER ==
--- NOTE | ~2020-12-27 | ONC ---
[place] [address] RADIATION ONCOLOGY NOTE Name: ANTELMO SHINE Room: [facility].#: [id number] Admission: 12/27/20 Attend Phys: Gurjit Carrillo MD Discharge: Date of : 73 Report #: [id number] THIS REPORT FOR: cc: FAM - No family physician/PCP FAM - No family physician/PCP Gurjit Carrillo MD ~ DOC #: [id number] Gurjit Carrillo MD DATE OF SERVICE: 12/27/2020 RADIATION ONCOLOGY FOLLOWUP NOTE REFERRING PHYSICIANS: Include Kat Washburn MD; Bentley Juarez MD; Dr. Cano; Dr. Solano; Leonardo Cabezas MD [facility] phone is [phone]. PRIMARY SITE AND HISTOPATHOLOGY. 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 She received postoperative radiation therapy. She also received chemotherapy, which consisted of cisplatin under the direction of her medical oncologist, Dr. Washburn. Radiation therapy was completed on 12/02/2018. INTERVAL NOTE: The patient is eating a regular diet. She eats foods such as turkey, ham and shrimp. She follows up with Rheumatology with possible Sjogren syndrome and she indicated she has a little bit of discomfort in the left pharyngeal/esophageal area for the last three months. MEDICATIONS: Include gabapentin, Protonix, Colace, Advil as needed, Flexeril, clonazepam, 25 mcg of levothyroxine per day, buspirone. SOCIAL HISTORY: Cigarettes: The patient does not smoke cigarettes. REVIEW OF SYSTEMS: RESPIRATORY: She is not short of breath. GASTROINTESTINAL: She has a good appetite. PHYSICAL EXAMINATION: VITAL SIGNS: The patient weighed 236.6 pounds on 12/27/2020. She was 223.8 pounds on 06/28/2020. On 12/27/2020, blood pressure was 122/80, pulse 75, respirations 20, temperature 97.6 degrees Fahrenheit, oxygen saturation 98%. LYMPH NODES: The patient has no palpable cervical or supraclavicular lymphadenopathy. HEAD, EYES, EARS, NOSE AND THROAT: Mouth had no suspicious visible lesions or suspicious palpable lesions. Tympanic membranes were intact bilaterally. HEART: Had a regular rate and [place] [address] RADIATION ONCOLOGY NOTE Name: ANTELMO SHINE Room: [facility]#: [id number] Admission: 12/27/20 Attend Phys: Gurjit Carrillo MD Discharge: Date of : 73 Report #: [id number] LUNGS: Clear to auscultation. LABORATORY DATA: From her primary care office on 12/26/2020, sodium 139, potassium 4.2, BUN 13, creatinine 1.2, calcium 9.2. White blood cell count 5.3, hemoglobin 12.6, platelets 124,000 and she had radiologic data on 10/01/2020 with a neck and chest CT. The chest CT showed a stable tiny right lung nodule since at least 2019 likely benign scars or granulomas. She has a neck CT on 10/01/2020, which showed no interval change of the residual mass in the deep portion of the left parotid gland. ASSESSMENT AND PLAN: 1. History of parotid gland cancer. There is no clear evidence of active cancer at this time. The patient had lab work and a neck CT ordered in 3 months and she was asked to follow up with me afterwards. 2. Hypothyroidism. The patient was given a refill for 25 mcg of levothyroxine and TSH was ordered in 3 months and she was asked to follow up with me afterwards. 3. Dental care. The patient says that her dentist gives her PreviDent 5000 fluoride gel and she uses it with dental trays or she applies with a toothbrush. 4. Mild painful swallowing in the left pharyngeal area. This is probably due to xerostomia. The patient was referred to her ear, nose and throat physician, Dr. Juarez, to evaluate that area. Again, she was asked to follow up with me in about 3 months. Total time spent on this appointment was approximately 31 minutes. Thank you for allowing me to participate in the care of this patient. MD FARHEEN Shah/NONA/MARIO By: 1528 [id number] Carrillo MD /brandy
== END ==
LOC: M.RTH 11:15
PROVIDERS: ATTEND Radiology Radiation Oncology
DX: E03.9 Hypothyroidism, unspecified (principal); R13.10 Dysphagia, unspecified; Z85.818 Personal history of malignant neoplasm of other sites of lip, oral cavity, and pharynx